=== PATIENT | male | born 1960 | race Caucasian/White ===

== ENCOUNTER 2023-01-30 17:10 | Emergency (ER) | payer OTHER, SELFPAY ==
[2023-01-30 17:28] VITALS: BP 143/80; PULSE 59; RESP 17; TEMP 36.3; O2SAT 97; BMI 22.8
[2023-01-30 17:38] VITALS: BP 141/82; PULSE 60; RESP 18; O2SAT 97
[2023-01-30] MEDS: fluorescein 1 mg Strip EYE-LEFT (18:00)
[2023-01-30] MEDS: tetracaine 0.5% Op Soln 4 mL Btl 1 DROP EYE-LEFT (18:00)
--- NOTE | 2023-01-30 18:28 | W.ED.EYEPROB ---
Documented by User: Maria L Garcia, [employer] 01/30/23 18:39 HPI - Eye Problem General: Chief complaint: Eye Problems Stated complaint: something in left eye Time Seen by Provider: 01/30/23 17:33 History of Present Illness: Patient is in tonight with reports of metal foreign body in his left eye. Patient reports that last Friday he was grinding metal and felt like he got something in there but flushed his eye and thought that it was gone. He reports he has not had any other issue until last night it started hurting. His looked in there and saw a piece of metal today. Patient denies any visual disturbance. He reports this has happened in the past and he had rust ring that had to be removed. Review of Systems Eyes: Reports: other (Foreign body left eye) Physical Exam Const: COMMON NORMALS: no acute distress, patient oriented x3 and alert Eye: COMMON NORMALS: Equal, round and reactive pupils present and EOMs intact bilaterally PUPIL: Yes Equal, round and reactive pupils present OTHER: Left I lateral iris there is a pinpoint metallic foreign body appreciated. Tetracaine eye drop applied. Fluorescein stain left eye reveals foreign body pinpoint with corneal abrasion. Negative Tiffanie sign. Attempted removal of foreign body with cotton tip swab unsuccessful. 29-gauge needle on an insulin syringe used to gently lift foreign body. There appears to be a rust ring. Patient tolerated well. Fluorescein stain applied again remains negative for Tiffanie sign. Had Dr. Delacruz, ER physician, evaluate patient eye. He agrees that foreign body appears to be removed and there appears to be a remnant rust ring. Neuro: COMMON NORMALS: patient oriented x3 SENSORIUM/ORIENTATION: Yes alert Course Vital Signs: Vital signs: Vital Signs Temperature 97.4 F L 01/30/23 17:28 Pulse Rate 60 01/30/23 17:38 Respiratory Rate 18 01/30/23 17:38 Blood Pressure 141/82 01/30/23 17:38 Pulse Oximetry 97 01/30/23 17:38 Oxygen Delivery Me thod Room Air 01/30/23 17:38 MDM - Eye Problem Medical Decision Making Metallic foreign body, rust ring left eye. Foreign body removed with 29-gauge needle. Patient tolerated well. Rust ring noted. Negative Tiffanie sign. Consulted with Dr. Delacruz, ER physician, for further evaluation. He advised that he agreed with assessment and treatment thus far. Dr. Delacruz discussed with patient options to attempt rust ring removal with the bur in the ER or have patient follow-up with ophthalmology tomorrow. He advised patient that either way he needs to follow-up with ophthalmology. Patient stated that he felt more comfortable having ophthalmology remove the rust ring. Patient's family did make contact with Dr. Lange and the patient has an appointment to see him at 8:00 tomorrow morning for further evaluation and removal of rust ring as appropriate. Patient will be given erythromycin eye ointment and an eye patch to follow-up with ophthalmology at 8:00 appointment tomorrow. 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 Use erythromycin as ordered. Follow-up tomorrow with ophthalmology. Return to the ER as needed for any new or worsening symptoms Coding Level of Care Code ED Glass Wool Blanket Machine Feeder for Chg Fwd Documented by User: Chris Delacruz MD 01/30/23 18:48 HPI - Eye Problem General: Chief complaint: Eye Problems Stated complaint: something in left eye Time Seen by Provider: 01/30/23 17:33 Course ED course: Patient was seen and examined by myself and the midlevel provider. I discussed the plan of care with the patient and evaluated his left eye post metallic object removal. I did advise him that we would need to use a bur tool and attempt to remove the rust ring that was surrounding the foreign body that was removed from his eye and he requested that we allow him to see his metal solderer tomorrow. I explained the risk and possible complications of delayed rust ring removal he verbalized understanding of all information was provided and stated he would still prefer to see his metal solderer. We will provide him antibiotic ointment to the eye and an eye patch and have him follow-up with the metal solderer that he has chosen. I advised him that he may return to the emergency department at any time for any reason or if he changed his mind at any time. 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 Use erythromycin as ordered. Follow-up tomorrow with ophthalmology. Return to the ER as needed for any new or worsening symptoms Coding Level of Care Code ED Glass Wool Blanket Machine Feeder for Debbie Coles
[2023-01-30] MEDS: erythromycin Op Oint 1 gm 1 APPLIC EYE-LEFT (18:54)
== END 2023-01-30 19:00 | disposition home or self-care (01) ==
PROVIDERS: Emergency Provider Nurse Practitioner Family; Family Provider Electrodiagnostic Medicine; PCP Electrodiagnostic Medicine
DX: T15.02XA Foreign body in cornea, left eye, initial encounter (principal); W44.D9XA Other magnetic metal objects entering into or through a natural orifice, initial encounter
CPT/HCPCS: 65220; 99283